=== PATIENT | female | born 1970 | race Caucasian/White ===

== ENCOUNTER 2016-06-11 21:32 | Emergency (ER) | payer SELFPAY ==
[~2016-06-11] VITALS: Ht 157.5 cm; Wt 121.2 kg
--- OUTSIDE RECORDS SUMMARY | 2016-06-11 21:39 | XMS REPORT | Continuity Of Care Document ---
Author Author [facility] Organization [facility] Address [address] [place] [address] Phone Care Team Providers Care Veterinary Virus Serum Inspector Name Role Phone ESTEBAN MATSON G AT Results Results No results recorded. Allergies and Adverse Reactions Allergies and Adverse Reactions Patient Unit Number: [id number] No allergies recorded. Problem List Problem List Visit/Account #[id number] (December 09, 2015 8:11pm - December 09, 2015 9:02pm) Acute Problems: Code/Condition Comments Documented Start Date Documented Resolved Date Code (s) Headache ICD10: R51 Headache ICD9: 784.0 Headache SNOMED: 11739737 Headache Plan of Care Plan Of Care Visit/Account #[id number] (December 09, 2015 8:11pm - December 09, 2015 9:02pm) Patient Instructions stay hydrated, keep neurologist appointment call faby alberto for new patient appointment to establish primary care provider Vital Signs Vital Signs Visit/Account #[id number] (December 09, 2015 8:11pm - December 09, 2015 9:02pm) Sign First Result Last Result Code(s) Body Mass Index Body Mass Index (BMI): 50.0 kg/m2 On December 09, 2015 8:09pm 25186-0 BMI (body mass index) Body Mass Index as a Calculated Value 50.2 kg/m2 On December 09, 2015 8:09pm 38300-9 BMI (body mass index) Body Surface Area as a Calculated Value 2.19 m2 On December 09, 2015 8:09pm 3140-1 BSA (body surface area) Height (Feet/Inches) 5 [ft_us] 2 [in_us] On December 09, 2015 8:09pm Temperature in Fahrenheit Temperature (Fahrenheit): 98.0 [degF] On December 09, 2015 8:09pm Temperature (Fahrenheit): 97.9 [degF] On December 09, 2015 9:01pm 8310-5 Body Temperature Weight in Kilograms Weight (Kilograms): 124.5 kg On December 09, 2015 8:09pm 3141-9 Weight Measured 51122-5 Body weight measured in kilograms Functional Status Functional and Cognitive Status No Functional Status Data Medications Inpatient/Ordered Medications - Medications administered during hospital visit Visit/Account #[id number] (December 09, 2015 8:11pm - December 09, 2015 9:02pm) Medication Route Sig/Schedule Precondition/Indication Comments/ Instructions Codes TORADOL INJ(KETOROLAC TROMETHAMINE) 60 MG/2 ML VIAL Dose: 2 ML INTRAMUSC NOW 2 ML Ketorolac Tromethamine 30 MG/ML Injection (RxNorm): 9021741 TORADOL INJ (KETOROLAC TROMETHAMINE) NDC: 19921090526 BENADRYL INJ(DiphenhydrAMINE HCL) 50 MG/ML INJECTION Dose: 1 ML INTRAVEN NOW Label Comments: MAY INCREASE FALL RISK Diphenhydramine Hydrochloride 50 MG/ML Injectable Solution (RxNorm): 9437411 BENADRYL INJ (DiphenhydrAMINE HCL) NDC: 56979020310 PHENERGAN INJ(PROMETHAZINE HCL) 25 MG/ML INJECTION Dose: 1 ML INTRAMUSC NOW 1 ML Promethazine Hydrochloride 25 MG/ML Injection (RxNorm): 306394 PHENERGAN INJ (PROMETHAZINE HCL) NDC: 75282763795 Discharge Medications - Medications that patient should continue to take. Review with physician Visit/Account #[id number] (December 09, 2015 8:11pm - December 09, 2015 9:02pm) Medication Route Sig/Schedule Precondition/Indication Comments/ Instructions Codes Ibuprofen(IBUPROFEN) 800 MG TABLET Dose: 800 MG ORAL 3 TIMES A DAY PAIN Ibuprofen 800 MG Oral Tablet (RxNorm): 700797 Ibuprofen (IBUPROFEN) NDC: 48553756416 History Of Encounters Encounters Visit/Account #[id number] (December 09, 2015 8:11pm - December 09, 2015 9:02pm) Account Status Physican Of Record Reason For Visit Visit Diagnosis Start Date/Time Stop Date/Time OJ ORELLANA MD HEADACHE Not Available Dec 09, 2015 8:11pm Dec 09, 2015 9:02pm History of Procedures Procedure List No procedures recorded. Discharge Instructions Discharge Instructions Visit/Account #[id number] (December 09, 2015 8:11pm - December 09, 2015 9:02pm) DISCHARGE INSTRUCTIONS Physician Documentation Social History Social History No Social History Data. Immunizations Immunizations Patient Unit Number: [id number] Immunizations No immunizations recorded.
--- NOTE | 2016-06-11 22:08 | NUR ---
DID FINISH ANTIBIOTIC CIPRO, FLUCONAZOLE AND LORTAB SAID FINISHED ATB AND FLUCONAZOLE YESTERDAY AND HAS 1 LORTAB LEFT TOOK ONE YESTERDAY AROUND 0800
[2016-06-11] MEDS ORDERED: CLON0.5T3 PO (22:16)
[2016-06-11] MEDS ORDERED: CIPR500T4 PO (22:16)
[2016-06-11] MEDS ORDERED: FLUC150T2 PO (22:16)
[2016-06-11] MEDS ORDERED: HYDR-3702 PO (22:16)
--- NOTE | 2016-06-11 22:18 | NUR ---
PT AND DTR STATED SHE IS SUPPOSE TO TAKE DEPRESSION MED, ANXIETY MED, AND OTHER MEDS BUT DOESN'T BECAUSE SHE DOES NOT WANT TO.
[2016-06-11] MEDS ORDERED: SODIUM CHLORIDE FLUSH 3 ML SYR IV PRN (22:30)
[2016-06-11] MEDS ORDERED: ONDANSETRON 2 MG/ML (Z0FRAN) 2 ML VIAL IV ONE (22:30)
[2016-06-11] MEDS ORDERED: SODIUM CHLORIDE FLUSH 10 ML SYR IV PRN (22:30)
[2016-06-11 22:51] LABS: BASOPHILS % (AUTO) 0 % (0-2); EOSINOPHILS # (AUTO) 0.1 10^3uL; EOSINOPHILS % (AUTO) 2 % (0-4); LYMPHOCYTES # (AUTO) 2.6 X10^3; MEAN CORPUSCULAR HEMOGLOBIN 30.4 PG (26.0-34.0); MEAN CORPUSCULAR HGB CONC 33.3 g/dL (31.0-37.0); MEAN CORPUSCULAR VOLUME 91 FL (80-100); MEAN PLATELET VOLUME 10.2 FL (6.0-9.5); MONOCYTES # (AUTO) 0.6 X10^3; MONOCYTES % (AUTO) 8 % (3-11); NEUTROPHILS # (AUTO) 4.3 X10^3; NEUTROPHILS % (AUTO) 56 % (51-67); PLATELET COUNT 210 10^3uL (150-450); WHITE BLOOD COUNT 7.68 10^3uL (4.0-11.0)
[2016-06-11] MEDS: fentaNYL 100 MCG/2 ML VIAL IV PRN ×2 (22:57→23:50)
[2016-06-11 22:58] LABS: CLARITY,URINE Clear; COLOR,URINE Yellow; GLUCOSE, URINE (UA) Negative (Negative); LEUKOCYTE ESTERASE ,URINE Negative (Negative)
[2016-06-11 23:04] LABS: ALBUMIN 4.3 g/dL (3.4-5.0); BILIRUBIN,URINE 1+ (Negative); CALCULATED IONIZED CALCIUM 4.1 mg/dL (3.8-4.6); TOTAL PROTEIN 7.6 g/dL (6.4-8.5)
[2016-06-11 23:15] LABS: URINE CENTRIFUGED VOLUME 12 mL
--- NOTE | 2016-06-11 23:18 | NUR ---
FAXED RAYSA FOR COPY OF PTS VISIT ON 06/03/16 Addendum: 06/11/16 at 2318 by [id number] FAXED IT TO [facility]
[2016-06-11 23:20] LABS: CALCIUM OXALATE CRYSTALS,UR 1+ /HPF
[2016-06-11 23:21] LABS: COARSE GRANULAR CASTS,URINE 1+ /LPF
--- NOTE | 2016-06-12 00:54 | NUR ---
PT WAS GIVEN WATER AND CRANBERRY JUICE PER DR JONY HURT, SHE SAIS IT WOULD GIVE HER DIARRHEA AND WANTS A STOOL SPECIMEN
[2016-06-12] MEDS ORDERED: DICYCLOMINE 10 MG (BENTYL) CAP PO ONE (01:45)
[2016-06-12] MEDS ORDERED: ED- PROMETHAZINE 25 MG (PHENERGAN) 10 TABLETS/BTL PO ONE ×2 (01:45→01:55)
[2016-06-12] MEDS ORDERED: PRM25T PO (01:50)
[2016-06-12] MEDS ORDERED: DCCL10A2 IM (01:50)
[2016-06-12] MEDS ORDERED: DICYCLOMINE 10 MG (BENTYL) CAP ONE (01:55)
[2016-06-12 02:11] VITALS: BP 90/53
--- NOTE | 2016-06-12 02:31 | NUR ---
LIST OF LOCAL DOCTORS GIVEN TO PATIENT
== END 2016-06-12 02:32 | disposition home or self-care (01) ==
LOC: ED 21:35
DX: R10.84 Generalized abdominal pain (principal); R11.2 Nausea with vomiting, unspecified; R19.7 Diarrhea, unspecified
CPT/HCPCS: 36415; 80053; 81003; 81015; 81025; 83690; 85025; 87045; 87046; 87088; 87324; 87449; 89055; 96361; 96374; 96375; 96376; 99284; J2405; J3010; J7030; 99283